=== PATIENT | male | born 1990 | race Caucasian/White ===

== ENCOUNTER 2019-06-30 14:56 | Emergency (ER) | payer OTHER, BC ==
--- NOTE | 2019-06-30 15:17 | ED Physician Documentation ---
PD HPI UPPER EXT INJURY - Stated complaint Stated Complaint: FINGER INJURY - Chief complaint Chief Complaint: Trauma Ext - History obtained from History obtained from: Patient - History of Present Illness Location: Left, Finger (index) Type of injury: Crush (he was swinging fire tool during training exercise and finger crushed between tool handle and the car he was striking, with injury to tip of finger. 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 No: Weakness, Numbness Similar symptoms before: Has not had sx before Recently seen: Not recently seen Review of Systems Skin: reports: Laceration (s) Neurologic: denies: Focal weakness, Numbness PD PAST MEDICAL HISTORY - Past Medical History Cardiovascular: None Respiratory: None Endocrine/Autoimmune: None - Present Medications Home Medications: Ambulatory Orders Medication Instructions Recorded Confirmed No Known Home Medications 06/30/19 06/30/19 - Allergies Allergies/Adverse Reactions: Allergies Allergy/AdvReac Type Severity Reaction Status Date / Time No Known Drug Allergies Allergy Verified 06/30/19 15:06 PD ED PE NORMAL - Vitals Vital signs reviewed: Yes - General General: Alert and oriented X 3, No acute distress, Well developed/nourished - Derm Derm: Normal color, Warm and dry - Extremities Extremities: Other (left index finger with bruising under nail and tenderness. Tender at palmar tip of finger with swelling and early bruising. Has color and cap refill at tip. Laceration at tip distal to the nailbed, No lac at nailbed edges. Not tender at the DIP joint. He can flex against resistance at finger. Normal sensation at tip both sides. Laceration is 1 cm with edges apart due to swelling. No FB. Mild bleeding. ) - Neuro Neuro: Alert and oriented X 3, No motor deficit, No sensory deficit, Normal speech Results - Vitals Vitals: Vital Signs - 24 hr 06/30/19 06/30/19 15:02 17:05 Temperature 36.5 C Heart Rate 77 54 L Respiratory 16 16 Rate Blood Pressure 137/85 H 138/76 H O2 Saturation 98 99 Oxygen O2 Source Room air - Rads (name of study) left index finger Radiology: Prelim report reviewed (tuft fracture nondisplaced. No FB. ), EMP read contemporaneously, See rad report Procedures - Laceration (location) left index finger tip Length in cm: 1 Wound type: Irregular, Into subcut fat, Clean. No: Into muscle Neurovascular status: Sensory intact, Motor intact, Vascular intact Tendon involvement: Tendon intact Anesthesia: Lidocaine 2% (digital block) Wound Preparation: Irrigated copiously NS Skin layer closure: Nylon, Interrupted, Size #-0 - enter number (4), Sutures - enter # (5) Other: Patient tolerated well, No complications, Dressing applied, Tetanus UTD, Other (battery cautery used to make small hole in nail with minimal blood out.) PD MEDICAL DECISION MAKING - ED course Complexity details: reviewed results (tuft fracture. Joint is okay. ), considered differential, d/w patient Departure - Departure Disposition: 01 Home, Self Care Clinical Impression: Closed fracture of tuft of distal phalanx of finger, Subungual hematoma Crushed finger, distal Qualifiers: Encounter type: initial encounter Qualified Code(s): S67.10XA - Crushing injury of unspecified finger(s), initial encounter Finger laceration Qualifiers: Encounter type: initial encounter Finger: index finger Damage to nail status: with damage Foreign body presence: without foreign body Laterality: left Qualified Code(s): S61.311A - Laceration without foreign body of left index finger with damage to nail, initial encounter Condition: Stable Record reviewed to determine appropriate education?: Yes Instructions: ED Fx Finger Closed, ED Laceration Hand Comments: It is okay to wash and shower. Clean off the wound twice a day with soap and water, or peroxide and water. Apply some antibiotic ointment to it to keep it moist. Also to watch for signs of infection such as purulence, redness or increasing pain. Return to your primary care or the ER at the specified time for suture removal. Suture removal 8 to 10 days. Fingertip splinter protector for the next 3 to 4 weeks based on comfort. Use it pretty regularly the first 1 to 2 weeks as the wound is healing and the initial bone fracture is hardening. It will be about a month or so of tenderness of the fingertip but the worst of that will be the first week as the swelling goes down in the initial healing. Forms: Activity restrictions Discharge Date/Time: 06/30/19 17:05
[2019-06-30] MEDS ORDERED: LIDOCAINE 2% 10 ML MDV SUBQ STA (15:21)
--- NOTE | 2019-06-30 16:00 | XRAY Report ---
Reason: crush injury index finger Procedure Date: 06/30/2019 Accession Number: [id number] / [id number] Procedure: XR - Finger(s) LT CPT Code: FULL RESULT: EXAM: LEFT SECOND DIGIT RADIOGRAPHY EXAM DATE: 06/30/2019 03:51 PM. CLINICAL HISTORY: Crush injury index finger. COMPARISON: None. TECHNIQUE: 3 views. FINDINGS: Bones: Acute comminuted fracture of the tuft of the second finger. The fracture is minimally displaced. No suspicious osseous lesion. Joints: No significant joint space narrowing. No dislocation. Other: None. IMPRESSION: 1. Acute comminuted fracture of the tuft of the second finger. [facility]
[2019-06-30 17:07] VITALS: BP 138/76
== END 2019-06-30 17:05 | disposition home or self-care (01) ==
LOC: ED 14:56
DX: S62.661A Nondisplaced fracture of distal phalanx of left index finger, initial encounter for closed fracture (principal); S61.311A Laceration without foreign body of left index finger with damage to nail, initial encounter; S60.122A Contusion of left index finger with damage to nail, initial encounter; W23.0XXA Caught, crushed, jammed, or pinched between moving objects, initial encounter; Y93.89 Activity, other specified; Y99.0 Civilian activity done for income or pay
CPT/HCPCS: 1040M; 11740; 12001; 73140; 99283